=== PATIENT | female | born 1985 | race Caucasian/White ===

== ENCOUNTER 2020-04-26 10:03 | Emergency (ER) | payer MEDICAID ==
[~2020-04-26] VITALS: Ht 162.6 cm; Wt 97.7 kg
[2020-04-26 10:32] VITALS: BP 120/80
[2020-04-26] MEDS ORDERED: AMOX-117 PO (10:47)
[2020-04-26] MEDS ORDERED: dexamethasone sod phosphate 10mg/ml inj PO STA (10:47)
== END 2020-04-26 11:25 | disposition home or self-care (01) ==
LOC: ER 10:04
DX: J02.0 Streptococcal pharyngitis (principal); B95.0 Streptococcus, group A, as the cause of diseases classified elsewhere; M79.18 Myalgia, other site; R11.10 Vomiting, unspecified; E03.9 Hypothyroidism, unspecified; F17.200 Nicotine dependence, unspecified, uncomplicated; Z79.899 Other long term (current) drug therapy
CPT/HCPCS: 87880; 99283; J1100

== ENCOUNTER 2021-07-09 10:50 | Emergency (ER) | payer MEDICAID ==
[~2021-07-09] VITALS: Ht 162.6 cm; Wt 89.1 kg
[~2021-07-09 10:50] MED LIST: LEVO75TA7 PO
[2021-07-09 11:27] VITALS: BP 113/64
== END 2021-07-09 13:03 | disposition home or self-care (01) ==
LOC: ER 10:51
DX: R11.0 Nausea (principal); R10.9 Unspecified abdominal pain; R51.9 Headache, unspecified; R05.9 Cough, unspecified; R19.7 Diarrhea, unspecified; R42 Dizziness and giddiness; E06.9 Thyroiditis, unspecified; Z79.899 Other long term (current) drug therapy; Z88.5 Allergy status to narcotic agent; Z20.822 Contact with and (suspected) exposure to COVID-19
CPT/HCPCS: 87502; 87503; 87635; 99283; C9803

== ENCOUNTER 2022-04-15 13:04 | Emergency (ER) | payer MEDICAID ==
[~2022-04-15] VITALS: Ht 162.6 cm; Wt 84.1 kg
[2022-04-15 14:00] LABS: BASOPHILS % (AUTO) 0.3 % (0-1); EOSINOPHILS % (AUTO) 0.3 % (0-6); HEMATOCRIT 39.4 % (35.0-45.0); HEMOGLOBIN 13.2 g/dl (12.0-16.0); LYMPHOCYTES # (AUTO) 1.3 X10'3 (1.1-4.8); LYMPHOCYTES % (AUTO) 12.9 % (21-51); MEAN CORPUSCULAR HEMOGLOBIN 29.9 PG (27.0-31.0); MEAN CORPUSCULAR HGB CONC 33.5 g/dL (33.0-36.5); MEAN CORPUSCULAR VOLUME 89.3 FL (78-98); MEAN PLATELET VOLUME 9.2 FL (7.4-10.4); MONOCYTES # (AUTO) 0.8 X10'3 (0-0.9); MONOCYTES % (AUTO) 7.7 % (2-12); NEUTROPHILS # (AUTO) 8.1 X10'3 (1.8-7.7); NEUTROPHILS % (AUTO) 78.8 % (42-75); PLATELET COUNT 214 X10'3 (140-440); RED BLOOD COUNT 4.41 X10'6 (4.20-5.60); RED CELL DISTRIBUTION WIDTH 13.5 % (11.5-14.5); WHITE BLOOD COUNT 10.3 X10'3 (4.5-11.0)
[2022-04-15 14:09] LABS: CLARITY,URINE CLOUDY (Clear); COLOR,URINE YELLOW (Yellow); GLUCOSE, URINE NEGATIVE (Neg); KETONES,URINE NEGATIVE (Neg); LEUKOCYTE ESTERASE ,URINE MODERATE (Neg); NITRITES, URINE POSITIVE (Neg); OCCULT BLOOD,URINE LARGE (Neg); PROTEIN,URINE 100 mg/dl (Neg); URINE HCG NEGATIVE (NEG); UROBILINOGEN,URINE 0.2 E.U/dL (0.2-1.0)
[2022-04-15 14:17] LABS: ALANINE AMINOTRANSFERASE 26 U/L (12-78); ALBUMIN/GLOBULIN RATIO 0.9 (1.1-1.5); ALKALINE PHOSPHATASE 75 IU/L (46-116); ANION GAP 8 (8-16); ASPARTATE AMINO TRANSFERASE 18 U/L (10-37); BILIRUBIN,TOTAL 0.9 MG/DL (0.1-1.0); BLOOD UREA NITROGEN 15 MG/DL (7-18); CALCIUM 9.1 MG/DL (8.5-10.1); CHLORIDE 102 MMOL/L (99-107); CREATININE 0.79 MG/DL (0.40-0.90); GLUCOSE 96 MG/DL (70-104); POTASSIUM 4.2 MMOL/L (3.5-5.1); SODIUM 139 MMOL/L (135-145); TOTAL CARBON DIOXIDE 29.3 MMOL/L (24-32); TOTAL PROTEIN 8.3 G/DL (6.4-8.2); eGFR 81 ML/MIN
[2022-04-15 14:18] LABS: UA COLLECTION TYPE CLN CATCH MIDSTREAM
[2022-04-15 14:21] LABS: BACTERIA,URINE 2+ /HPF (Neg); SQUAMOUS EPITHELIAL CELL,UR FEW /LPF (FEW); WBC,URINE TNTC /HPF (0-4)
[2022-04-15] MEDS ORDERED: CEPH500C2 PO ×3 (16:20→17:18)
[2022-04-15 16:21] VITALS: BP 129/71
[2022-04-15] MEDS ORDERED: cephalexin 250mg capsule PO ONE (16:25)
== END 2022-04-15 16:45 | disposition home or self-care (01) ==
LOC: ER 13:05
DX: N39.0 Urinary tract infection, site not specified (principal); E03.9 Hypothyroidism, unspecified; Z88.5 Allergy status to narcotic agent; Z79.2 Long term (current) use of antibiotics
CPT/HCPCS: 36415; 80053; 81001; 81025; 85025; 87077; 87088; 87186; 99283

== ENCOUNTER 2022-09-12 08:05 | Emergency (ER) | payer MEDICAID ==
[~2022-09-12] VITALS: Ht 162.6 cm; Wt 93.9 kg
[~2022-09-12 08:05] MED LIST changes: +CEPH500C2 PO
[2022-09-12 08:07] VITALS: BP 136/91
[2022-09-12 08:26] LABS: BASOPHILS % (AUTO) 0.5 % (0-1); EOSINOPHILS # (AUTO) 0.1 X10'3 (0-0.9); EOSINOPHILS % (AUTO) 1.4 % (0-6); HEMOGLOBIN 12.1 g/dl (12.0-16.0); LYMPHOCYTES # (AUTO) 1.9 X10'3 (1.1-4.8); LYMPHOCYTES % (AUTO) 28.3 % (21-51); MEAN CORPUSCULAR HEMOGLOBIN 30.1 PG (27.0-31.0); MEAN CORPUSCULAR HGB CONC 33.6 g/dL (33.0-36.5); MEAN CORPUSCULAR VOLUME 89.4 FL (78-98); MEAN PLATELET VOLUME 8.5 FL (7.4-10.4); MONOCYTES # (AUTO) 0.6 X10'3 (0-0.9); MONOCYTES % (AUTO) 8.9 % (2-12); NEUTROPHILS % (AUTO) 60.9 % (42-75); PLATELET COUNT 235 X10'3 (140-440); RED BLOOD COUNT 4.02 X10'6 (4.20-5.60); WHITE BLOOD COUNT 6.6 X10'3 (4.5-11.0)
[2022-09-12 08:42] LABS: ALANINE AMINOTRANSFERASE 54 U/L (12-78); ALBUMIN 3.5 G/DL (3.4-5.0); ALBUMIN/GLOBULIN RATIO 0.9 (1.1-1.5); ALKALINE PHOSPHATASE 82 IU/L (46-116); ANION GAP 5 (8-16); ASPARTATE AMINO TRANSFERASE 32 U/L (10-37); BILIRUBIN,TOTAL 0.5 MG/DL (0.1-1.0); BLOOD UREA NITROGEN 11 MG/DL (7-18); BUN/CREATININE RATIO 14.5 (6.6-38.0); CALCIUM 8.3 MG/DL (8.5-10.1); CHLORIDE 103 MMOL/L (99-107); CREATININE 0.76 MG/DL (0.40-0.90); GLUCOSE 96 MG/DL (70-104); MAGNESIUM 2.1 MG/DL (1.5-2.4); POTASSIUM 3.9 MMOL/L (3.5-5.1); SODIUM 139 MMOL/L (135-145); TOTAL CARBON DIOXIDE 30.7 MMOL/L (24-32); TOTAL PROTEIN 7.4 G/DL (6.4-8.2); eGFR 85 ML/MIN
== END 2022-09-12 09:09 | disposition home or self-care (01) ==
LOC: ER 08:05
DX: R07.89 Other chest pain (principal); E03.9 Hypothyroidism, unspecified; Z98.51 Tubal ligation status; Z79.899 Other long term (current) drug therapy; F12.90 Cannabis use, unspecified, uncomplicated; Z88.5 Allergy status to narcotic agent
CPT/HCPCS: 36415; 71045; 80053; 83735; 83880; 84145; 84484; 85025; 93005; 99285

== ENCOUNTER 2024-03-21 13:19 | Emergency (ER) | payer MEDICAID ==
[~2024-03-21] VITALS: Ht 162.6 cm; Wt 95.0 kg
[2024-03-21 13:25] VITALS: TEMP 97.6
[2024-03-21] MEDS ORDERED: LEVO88TA7 PO (15:45)
[2024-03-21 15:47] LABS: BILIRUBIN,URINE NEGATIVE (Neg); CLARITY,URINE CLEAR (Clear); COLOR,URINE YELLOW (Yellow); GLUCOSE, URINE NEGATIVE (Neg); KETONES,URINE NEGATIVE (Neg); LEUKOCYTE ESTERASE ,URINE NEGATIVE (Neg); NITRITES, URINE NEGATIVE (Neg); OCCULT BLOOD,URINE NEGATIVE (Neg); PROTEIN,URINE NEGATIVE (Neg); UROBILINOGEN,URINE 0.2 E.U/dL (0.2-1.0)
[2024-03-21 15:53] LABS: UA COLLECTION TYPE CLN CATCH MIDSTREAM
[2024-03-21 15:58] LABS: BASOPHILS % (AUTO) 0.5 % (0-1); EOSINOPHILS # (AUTO) 0.1 X10'3 (0-0.9); EOSINOPHILS % (AUTO) 1.6 % (0-6); HEMATOCRIT 38.9 % (35.0-45.0); HEMOGLOBIN 12.9 g/dl (12.0-16.0); LYMPHOCYTES # (AUTO) 2.1 X10'3 (1.1-4.8); LYMPHOCYTES % (AUTO) 30.6 % (21-51); MEAN CORPUSCULAR HEMOGLOBIN 29.8 PG (27.0-31.0); MEAN CORPUSCULAR HGB CONC 33.2 g/dL (33.0-36.5); MEAN CORPUSCULAR VOLUME 89.8 FL (78-98); MEAN PLATELET VOLUME 9.3 FL (7.4-10.4); MONOCYTES # (AUTO) 0.6 X10'3 (0-0.9); MONOCYTES % (AUTO) 8.8 % (2-12); NEUTROPHILS # (AUTO) 4.1 X10'3 (1.8-7.7); NEUTROPHILS % (AUTO) 58.5 % (42-75); PLATELET COUNT 216 X10'3 (140-440); RED BLOOD COUNT 4.33 X10'6 (4.20-5.60); RED CELL DISTRIBUTION WIDTH 13.6 % (11.5-14.5); WHITE BLOOD COUNT 6.9 X10'3 (4.5-11.0)
[2024-03-21 16:44] LABS: ALBUMIN 3.8 G/DL (3.4-5.0); ANION GAP 8 (8-16); BLOOD UREA NITROGEN 11 MG/DL (7-18); BUN/CREATININE RATIO 13.3 (10.0-20.0); CALCIUM 8.8 MG/DL (8.5-10.1); CHLORIDE 104 MMOL/L (99-107); CREATININE 0.83 MG/DL (0.40-0.90); FREE T4 (FREE THYROXINE) 0.67 NG/DL (0.73-1.40); GLUCOSE 81 MG/DL (70-104); MAGNESIUM 1.9 MG/DL (1.5-2.4); POTASSIUM 3.9 MMOL/L (3.5-5.1); PRO BRAIN NATRIURETIC PEPTIDE 113 PG/ML (0-125); SODIUM 139 MMOL/L (135-145); TOTAL CARBON DIOXIDE 27.2 MMOL/L (24-32); eCRCL 78 ML/MIN; eGFR 76 ML/MIN
[2024-03-21 16:56] LABS: BETA HCG,QUANTITATIVE < 1.0 mIU/ml
[2024-03-21 18:05] VITALS: BP 131/90; PULSE 72; RESP 18; O2SAT 96
== END 2024-03-21 18:06 | disposition home or self-care (01) ==
LOC: ER 13:20
DX: R20.2 Paresthesia of skin (principal); E03.9 Hypothyroidism, unspecified; R19.7 Diarrhea, unspecified; R06.02 Shortness of breath; F12.90 Cannabis use, unspecified, uncomplicated; Z88.8 Allergy status to other drugs, medicaments and biological substances; Z79.899 Other long term (current) drug therapy; Z98.51 Tubal ligation status
CPT/HCPCS: 36415; 80048; 81003; 83735; 83880; 84439; 84443; 84702; 85025; 93005; 99284

== ENCOUNTER 2025-06-12 08:44 | Emergency (ER) | payer MEDICAID ==
[~2025-06-12] VITALS: Ht 165.1 cm; Wt 81.7 kg
[~2025-06-12 08:44] MED LIST changes: -CEPH500C2 PO; -LEVO75TA7 PO; +LEVO88TA7 PO
--- NOTE | 2025-06-12 10:25 | Physician Documentation ---
History of Present Illness General Chief Complaint: Rash Stated Complaint: RASH Time Seen by MD: 10:23 History of Present Illness Initial Comments Patient is a 39-year-old female complains of a rash to left side of her body as well as her left neck left arm and periorbital . The patient states rash shattered four days ago. Patient states she has had rashes similar to this on her extremities and she has been told that his eczema. The patient denies any fevers chills nausea or vomiting. She does describe to fairly aggressive weight loss of unknown etiology. The patient's symptoms are moderate and persistent. Medication Reconciliation Allergies: Coded Allergies: codeine (Verified Allergy, Unknown, RASH & HEADACHE, 06/12/25) hydrocodone (Verified Adverse Reaction, Unknown, FAINT, 06/12/25) Scheduled Levothyroxine Sodium (Levothyroxine Sodium), 1 TAB PO DAILY, (Reported) Prednisone* (Prednisone*), 2 TAB PO DAILY Past Medical History Past Medical History: Hypothyroidism Past Surgical History: tubal ligation Alcohol Use: Rarely Drug Use: marijuana Lives with: Family Lives In: Home Occupation: employed Physical Exam Physical Exam Vital Signs: Temperature: 98.2, Source: Oral, Heart Rate: 70, Respiratory Rate: 18, BP: 137/79, Pulse Oximetry: 99, Weight: 81.700 Oxygen Flow Rate: 0 Physical Exam VITALS: Reviewed and as above. GENERAL: Alert, no apparent distress. HEENT: Normocephalic, atraumatic, PERRL, EOMI, dry mucosa, no erythema RESPIRATORY: Lungs clear, normal breath sounds, no respiratory distress. CHEST: No accessory muscle use, no retractions CV: Regular rate, rhythm, no edema, no murmur, No: JVD GI: Soft, non-tender, bowels sounds present, no rebound, guarding, or rigidity BACK: No CVA tenderness, or swelling MUSCULOSKELETAL: No deformities, no edema SKIN: Maculopapular rash to the left arm left neck and some periorbital left eyelid swelling with some slight erythema conjunctiva are without erythema there was no exudates NEURO: Oriented x4, No motor or sensory deficit PSYCH: Normal mood and affect, no agitation Progress Results/Orders Results/Orders Completed Orders - OHLGUS DYER MD Dexamethasone Inj (Decadron 10mg/Ml Inj) (06/12/25 10:40) Vital Signs 10/10/25 10/10/25 08:54 10:50 Temp 98.2 98.0 Pulse 70 98 Resp 18 16 B/P (MAP) 137/79 130/80 Pulse Ox 99 99 O2 Flow Rate 0 Medical Decision Making Findings Patient with allergic dermatitis of unknown etiology patient will be given a dose of Decadron and then discharged on prednisone the patient's prior hospitalizations have been reviewed the patient's pulse oximetry was interpreted as adequate normal. Departure Disposition: HOME / SELF CARE / HOMELESS Impression: Primary Impression: Allergic contact dermatitis Qualified Codes: L23.9 - Allergic contact dermatitis, unspecified cause Discharge Instructions: Contact Dermatitis, [id number] Additional Instructions: The steroids as prescribed. Starting tomorrow. Follow up with her healthcare provider. Return for worsening of your symptoms. Referrals: NO PRIMARY CARE PROVIDER (PCP) Prescriptions Prednisone* (Prednisone*) 20 Mg Tablet 2 TAB PO DAILY, #14 TAB Prov: GUS JESUS MD 06/12/25 Signature Scribe Signature: no scribe Attestation: The note accurately reflects work and decisions made by me.Gus Jesus MD 06/13/25 06:16 GUS JESUS MD Jun 12, 2025 10:25
[2025-06-12] MEDS ORDERED: PRED20TA PO (10:40)
[2025-06-12] MEDS: dexamethasone sod phosphate 10mg/ml inj PO STA (10:45)
[2025-06-12 10:50] VITALS: BP 130/80; PULSE 98; RESP 16; TEMP 98; O2SAT 99
== END 2025-06-12 10:51 | disposition home or self-care (01) ==
LOC: ER 08:44
DX: L23.9 Allergic contact dermatitis, unspecified cause (principal); E03.9 Hypothyroidism, unspecified; F12.90 Cannabis use, unspecified, uncomplicated; Z88.5 Allergy status to narcotic agent; Z98.51 Tubal ligation status; Z79.899 Other long term (current) drug therapy
CPT/HCPCS: 99283; J1100